=== PATIENT | female | born 1985 | race Caucasian/White ===

== ENCOUNTER 2018-09-24 09:50 | Emergency (ER) | payer OTHER, SELFPAY ==
[2018-09-24] MEDS ORDERED: Morphine 4 MG/ML VIAL ONE (10:04)
[2018-09-24] MEDS ORDERED: Lorazepam 1 MG TAB ONE (10:04)
--- NOTE | 2018-09-24 11:08 | RAD ---
RADIOGRAPH LEFT ELBOW 4 VIEWS: DATE: 09/24/2018. HISTORY: A 33-year-old female with acute, traumatic left elbow pain. COMPARISON: None. FINDINGS: There is a displaced anterior fat pad sign. There is no dislocation. Visible only on one of the obli que views, there is a subtle lucency and irregularity at the lateral cortex of the head of the radius , which does not involve the capitelloradial articular surface. No other sites of potential fracture are identified. No dislocation. IMPRESSION: 1. Distention of elbow joint capsule. 2. Suspicious for nondisplaced, acute, traumatic fracture at the peripheral cortex of the radial hea d. 3. Recommend followup 4-view radiograph of elbow in 5-10 days. POS: [facility]
== END 2018-09-24 11:55 | disposition home or self-care (01) ==
LOC: SCSER 09:50
DX: S52.125A Nondisplaced fracture of head of left radius, initial encounter for closed fracture (principal); W18.30XA Fall on same level, unspecified, initial encounter
CPT/HCPCS: 29105; 96372; J2270